=== PATIENT | female | born 1990 | race Caucasian/White ===

== ENCOUNTER 2025-02-17 08:04 | Emergency (ER) | payer OTHER ==
[~2025-02-17] VITALS: Ht 162.6 cm; Wt 80.0 kg
[2025-02-17 08:11] VITALS: TEMP 98.1
[2025-02-17] MEDS: IBUPROFEN 200 MG TABLET PO ONE (09:02)
[2025-02-17] MEDS: ACETAMINOPHEN 500 MG TABLET PO ONE (09:02)
[2025-02-17 09:41] VITALS: BP 128/77; PULSE 93; RESP 16; O2SAT 99
[2025-02-17] MEDS ORDERED: IBUP-1554 PO (09:47)
[2025-02-17] MEDS ORDERED: ACET-66 PO (09:47)
== END 2025-02-17 10:00 | disposition home or self-care (01) ==
LOC: EMS 08:17
DX: S60.221A Contusion of right hand, initial encounter (principal); S00.83XA Contusion of other part of head, initial encounter; Z90.49 Acquired absence of other specified parts of digestive tract; V49.40XA Driver injured in collision with unspecified motor vehicles in traffic accident, initial encounter; Y93.89 Activity, other specified; Y92.410 Unspecified street and highway as the place of occurrence of the external cause; Y99.8 Other external cause status
CPT/HCPCS: 99283